=== PATIENT | female | born 1995 | race Two or more races ===

== ENCOUNTER 2016-06-03 00:41 | Emergency (ER) | payer OTHER ==
[2016-06-03 00:52] VITALS: RESP 20; TEMP 97.4; O2SAT 100
[2016-06-03] MEDS ORDERED: ONDANSETRON 4 MG ODT BU ONE ×2 (01:00→01:19)
[2016-06-03] MEDS ORDERED: ONDANSETRON 4 MG ODT ONE ×2 (01:01→01:20)
[2016-06-03 01:20] LABS: APPEARANCE,URINE Cloudy; BILIRUBIN,URINE NEGATIVE (NEGATIVE); COLOR,URINE Yellow; GLUCOSE, URINE (UA) NEGATIVE (NEGATIVE); KETONES,URINE NEGATIVE (NEGATIVE); LEUKOCYTE ESTERASE ,URINE TRACE (NEGATIVE); NITRATE,URINE NEGATIVE (NEGATIVE); OCCULT BLOOD,URINE TRACE LYSED (NEG-TRACE); PH,URINE >=9.0
[2016-06-03] MEDS ORDERED: LOPERAMIDE HYDROCHLORIDE 2 MG CAP PO ONE (01:22)
[2016-06-03] MEDS ORDERED: LOPERAMIDE HYDROCHLORIDE 2 MG CAP ONE (01:23)
[2016-06-03] MEDS ORDERED: SULFAMETHOXAZOLE/TRIMETHOPRI 800/160 MG PO ONE (01:32)
[2016-06-03] MEDS ORDERED: SULFAMETHOXAZOLE/TRIMETHOPRI 800/160 MG ONE (01:37)
[2016-06-03 01:49] VITALS: BP 110/69; PULSE 100
== END 2016-06-03 01:43 | disposition home or self-care (01) | DRG 392 ==
LOC: ED 00:41
DX: K52.9 Noninfective gastroenteritis and colitis, unspecified (principal)
CPT/HCPCS: 81001; 87088; 99283

== ENCOUNTER 2016-07-11 13:52 | Emergency (ER) | payer OTHER ==
[2016-07-11 18:10] VITALS: TEMP 98.4
[2016-07-11 18:16] VITALS: BP 108/68; PULSE 81; RESP 20; O2SAT 98
== END 2016-07-11 14:35 | disposition home or self-care (01) | DRG 206 ==
LOC: ED 13:52
DX: M94.0 Chondrocostal junction syndrome [Tietze] (principal)
CPT/HCPCS: 99282

== ENCOUNTER 2016-09-20 13:15 | Emergency (ER) | payer OTHER ==
[2016-09-20 13:15] VITALS: O2SAT 98
[2016-09-20 13:29] VITALS: BP 121/62; PULSE 106; RESP 18; TEMP 97.4
== END 2016-09-20 13:53 | disposition left against medical advice (07) | DRG 761 ==
LOC: ED 13:15
DX: N93.9 Abnormal uterine and vaginal bleeding, unspecified (principal); J02.9 Acute pharyngitis, unspecified
CPT/HCPCS: 99282

== ENCOUNTER 2016-09-28 13:48 | Emergency (ER) | payer OTHER ==
[2016-09-28] MEDS ORDERED: KETOROLAC TROMETHAMINE 30 MG/ML SOL IM ONE (14:21)
[2016-09-28] MEDS ORDERED: KETOROLAC TROMETHAMINE 30 MG/ML SOL ONE (14:32)
[2016-09-28 14:42] VITALS: RESP 16; TEMP 97.3
[2016-09-28 15:08] VITALS: BP 124/57; PULSE 70; O2SAT 99
== END 2016-09-28 15:15 | disposition home or self-care (01) | DRG 605 ==
LOC: ED 13:48
DX: S90.31XA Contusion of right foot, initial encounter (principal)
CPT/HCPCS: 73630; 99283; J1885

== ENCOUNTER 2016-11-21 02:34 | Emergency (ER) | payer OTHER ==
[2016-11-21 02:39] VITALS: RESP 18; TEMP 97.2
[2016-11-21 03:04] LABS: APPEARANCE,URINE Slightly Cloudy; BILIRUBIN,URINE NEGATIVE (NEGATIVE); COLOR,URINE Yellow; GLUCOSE, URINE (UA) NEGATIVE (NEGATIVE); KETONES,URINE NEGATIVE (NEGATIVE); LEUKOCYTE ESTERASE ,URINE NEGATIVE (NEGATIVE); NITRATE,URINE NEGATIVE (NEGATIVE); OCCULT BLOOD,URINE NEGATIVE (NEG-TRACE); PH,URINE 7.5
[2016-11-21 03:15] LABS: RBC,URINE 0-1 (0-3AV/HPF); WBC,URINE 0-2 (0-5AV/HPF)
[2016-11-21 03:37] VITALS: BP 136/82; PULSE 87; O2SAT 99
== END 2016-11-21 03:33 | disposition home or self-care (01) | DRG 392 ==
LOC: ED 02:34
DX: K59.00 Constipation, unspecified (principal); Z33.1 Pregnant state, incidental
CPT/HCPCS: 81001; 99282

== ENCOUNTER 2017-03-24 22:32 | Emergency (ER) | payer OTHER ==
[2017-03-24 22:40] VITALS: TEMP 97.3
[2017-03-24 23:25] LABS: APPEARANCE,URINE Clear; BILIRUBIN,URINE 1+ (NEGATIVE); COLOR,URINE Dark yellow; GLUCOSE, URINE (UA) NEGATIVE (NEGATIVE); KETONES,URINE 4+ (NEGATIVE); LEUKOCYTE ESTERASE ,URINE NEGATIVE (NEGATIVE); NITRATE,URINE NEGATIVE (NEGATIVE); OCCULT BLOOD,URINE NEGATIVE (NEG-TRACE); PH,URINE 5.5
[2017-03-24 23:40] LABS: ICTOTEST,URINE NEGATIVE (NEGATIVE); RBC,URINE 0-2 (0-3AV/HPF)
[2017-03-24 23:52] VITALS: RESP 18
[2017-03-24 23:53] VITALS: BP 121/88; PULSE 96; O2SAT 100
== END 2017-03-25 00:18 | disposition home or self-care (01) | DRG 781 ==
LOC: ED 22:32
DX: O26.892 Other specified pregnancy related conditions, second trimester (principal); R10.9 Unspecified abdominal pain; Z3A.23 23 weeks gestation of pregnancy
CPT/HCPCS: 59025; 81001; 99284

== ENCOUNTER 2017-04-30 14:54 | Emergency (ER) | payer OTHER ==
[2017-04-30 14:54] VITALS: O2SAT 100
[2017-04-30] MEDS ORDERED: SODIUM CHLORIDE 0.9% 1000ML 1,000 ML IV SCH ×2 (15:45→17:45)
[2017-04-30 15:50] VITALS: TEMP 97.8
[2017-04-30 16:02] LABS: APPEARANCE,URINE Clear; BILIRUBIN,URINE 1+ (NEGATIVE); COLOR,URINE Dark yellow; GLUCOSE, URINE (UA) NEGATIVE (NEGATIVE); KETONES,URINE 4+ (NEGATIVE); LEUKOCYTE ESTERASE ,URINE NEGATIVE (NEGATIVE); NITRATE,URINE NEGATIVE (NEGATIVE); OCCULT BLOOD,URINE NEGATIVE (NEG-TRACE); PH,URINE 5.5
[2017-04-30 16:14] LABS: ICTOTEST,URINE POSITIVE (NEGATIVE); RBC,URINE NEG (0-3AV/HPF)
[2017-04-30 16:17] LABS: ALBUMIN 2.7 gm/dl (3.4-5.0); CALCIUM 8.8 mg/dl (8.5-10.1); POTASSIUM 3.6 mMol/L (3.5-5.1)
[2017-04-30 16:28] LABS: BASOPHILS % (AUTO) 1 % (0-3); EOSINOPHILS % (AUTO) 0 % (0-9); HEMATOCRIT 39 % (35-47); MEAN CORPUSCULAR HGB CONC 31.3 gm/dl (32.0-36.0); MEAN CORPUSCULAR VOLUME 63 fL (81-99); MONOCYTES % (AUTO) 6.7 % (0-12); NEUTROPHILS % (AUTO) 74.7 % (37-80)
[2017-04-30] MEDS ORDERED: BETAMETHASONE 6 MG/ML SUS IM PRN (16:28)
[2017-04-30] MEDS ORDERED: BETAMETHASONE 6 MG/ML SUS ONE (16:31)
[2017-04-30 16:43] LABS: ANISOCYTOSIS SLIGHT AMT; OVALOCYTES PRESENT
[2017-04-30] MEDS ORDERED: MAGNESIUM SULFATE 20GM(PREMIX) 20 GM/500 ML SOL IV ONE (17:03)
[2017-04-30] MEDS ORDERED: NIFEDIPINE 10 MG SGL PO ONE (17:03)
[2017-04-30] MEDS ORDERED: CALCIUM GLUCONATE 10% 100 MG/ML SOL IV PRN (17:09)
[2017-04-30] MEDS ORDERED: MAGNESIUM SULFATE 20GM(PREMIX) 20 GM/500 ML SOL IV SCH (17:15)
[2017-04-30] MEDS ORDERED: CALCIUM GLUCONATE 10% 100 MG/ML SOL IV ONE (17:20)
[2017-04-30 19:04] VITALS: BP 110/66; PULSE 112; RESP 16
== END 2017-04-30 18:32 | disposition short-term general hospital (02) | DRG 778 ==
LOC: ED 14:54
DX: O60.03 Preterm labor without delivery, third trimester (principal); O30.043 Twin pregnancy, dichorionic/diamniotic, third trimester; Z3A.28 28 weeks gestation of pregnancy
CPT/HCPCS: 36415; 59025; 80053; 81001; 85025; 85610; 93005; 96365; 96366; 96372; 99285; J0610; J0702; A9270-GY

== ENCOUNTER 2017-05-21 16:31 | Emergency (ER) | payer OTHER ==
[2017-05-21 18:16] VITALS: TEMP 98.3
[2017-05-21 18:36] LABS: APPEARANCE,URINE Clear; BILIRUBIN,URINE NEGATIVE (NEGATIVE); COLOR,URINE Yellow; GLUCOSE, URINE (UA) NEGATIVE (NEGATIVE); KETONES,URINE NEGATIVE (NEGATIVE); LEUKOCYTE ESTERASE ,URINE NEGATIVE (NEGATIVE); NITRATE,URINE NEGATIVE (NEGATIVE); OCCULT BLOOD,URINE NEGATIVE (NEG-TRACE); PH,URINE 5.5
[2017-05-21 18:56] LABS: RBC,URINE NEG (0-3AV/HPF)
[2017-05-21] MEDS ORDERED: LACTATED RINGERS with DEXTROSE 1,000 ML IV ONE ×3 (19:05→19:07)
[2017-05-21 19:37] VITALS: PULSE 93; RESP 18; O2SAT 99
[2017-05-21 22:10] VITALS: BP 132/81
== END 2017-05-21 21:37 | disposition home or self-care (01) | DRG 392 ==
LOC: ED 16:31
DX: R19.7 Diarrhea, unspecified (principal); O47.03 False labor before 37 completed weeks of gestation, third trimester; R11.10 Vomiting, unspecified; Z3A.31 31 weeks gestation of pregnancy
CPT/HCPCS: 81001; 82731; 96365; 96366; 99283; 99285

== ENCOUNTER 2017-06-16 14:21 | Observation (INO) | payer OTHER ==
[2017-05-21 19:37] VITALS: O2SAT 99
[2017-06-16] MEDS ORDERED: LACTATED RINGERS with DEXTROSE 1,000 ML IV ONE ×2 (15:13→17:40)
[2017-06-16] MEDS ORDERED: SODIUM CHLORIDE 0.9% FLUSH 10 ML SOL IV PRN (15:20)
[2017-06-16 15:27] VITALS: RESP 16
[2017-06-16 16:08] LABS: APPEARANCE,URINE Clear; BILIRUBIN,URINE NEGATIVE (NEGATIVE); COLOR,URINE Yellow; GLUCOSE, URINE (UA) NEGATIVE (NEGATIVE); KETONES,URINE NEGATIVE (NEGATIVE); LEUKOCYTE ESTERASE ,URINE NEGATIVE (NEGATIVE); NITRATE,URINE NEGATIVE (NEGATIVE); OCCULT BLOOD,URINE NEGATIVE (NEG-TRACE)
[2017-06-16 16:32] LABS: BACTERIA 2+ (< 1+); CRYSTALS NEGATIVE (0-3 AVE/HPF); EPITHELIAL CELLS MANY CLUMPS (SQUAMOUS); RBC,URINE NEG (0-3AV/HPF); WBC,URINE 0-2 (0-5AV/HPF)
[2017-06-16 18:42] VITALS: BP 135/70; PULSE 89; TEMP 98.2
== END 2017-06-16 20:45 | disposition home or self-care (01) | DRG 780 ==
LOC: OB 14:22
PROVIDERS: ADMIT Family Medicine; ATTEND Family Medicine
DX: O47.03 False labor before 37 completed weeks of gestation, third trimester (principal); Z3A.35 35 weeks gestation of pregnancy
CPT/HCPCS: 59025; 81001; 87088

== ENCOUNTER 2017-06-28 23:30 | Inpatient (IN) | payer OTHER ==
[2017-06-28] MEDS ORDERED: CITRIC ACID/SODIUM CITRATE SOL PO ONE (23:45)
[2017-06-29 00:10] LABS: BASOPHILS % (AUTO) 1 % (0-3); EOSINOPHILS % (AUTO) 1 % (0-9); HEMATOCRIT 39 % (35-47); HEMOGLOBIN 11.8 gm/dl (12.0-15.5); LYMPHOCYTES % (AUTO) 34.2 % (10-50); MEAN CORPUSCULAR HEMOGLOBIN 19.9 pg (27.0-32.0); MEAN CORPUSCULAR HGB CONC 30.5 gm/dl (32.0-36.0); MONOCYTES % (AUTO) 8.3 % (0-12); NEUTROPHILS % (AUTO) 55.7 % (37-80)
[2017-06-29 00:22] LABS: MEAN CORPUSCULAR VOLUME 65 fL (81-99)
[2017-06-29] MEDS: LACTATED RINGERS 1,000 ML IV SCH ×4 (00:32→20:05)
[2017-06-29 00:33] LABS: ANISOCYTOSIS SLIGHT AMT; OVALOCYTES PRESENT; POIKILOCYTOSIS SLIGHT AMT; TEAR DROP CELLS PRESENT
[2017-06-29 00:43] LABS: APPEARANCE,URINE Clear; BILIRUBIN,URINE NEGATIVE (NEGATIVE); COLOR,URINE Yellow; GLUCOSE, URINE (UA) NEGATIVE (NEGATIVE); KETONES,URINE TRACE (NEGATIVE); LEUKOCYTE ESTERASE ,URINE NEGATIVE (NEGATIVE); NITRATE,URINE NEGATIVE (NEGATIVE); OCCULT BLOOD,URINE 1+ (NEG-TRACE)
[2017-06-29 00:59] LABS: WBC,URINE NEG (0-5AV/HPF)
[2017-06-29 01:00] LABS: BACTERIA NEGATIVE (< 1+); CRYSTALS NEGATIVE (0-3 AVE/HPF)
[2017-06-29 01:05] LABS: ABO A; ANTIBODY SCREEN Negative; RH TYPE Positive
[2017-06-29] MEDS ORDERED: FENTANYL 100MCG/2ML SOL ONE ×2 (01:08→02:47)
[2017-06-29] MEDS ORDERED: MORPHINE SULFATE 0.5 MG/ML SOL ONE (01:08)
[2017-06-29] MEDS ORDERED: OXYTOCIN 10000 MU/ML SOL ONE ×2 (01:52→03:04)
[2017-06-29] MEDS ORDERED: CEFAZOLIN SODIUM 1 GM PDS ONE ×2 (01:52→08:22)
[2017-06-29] MEDS ORDERED: EPHEDRINE SULFATE 50 MG/ML SOL ONE (01:52)
[2017-06-29] MEDS ORDERED: [UNRECOGNIZED DRUG - OTHER] IV ONE (01:55)
[2017-06-29] MEDS ORDERED: ONDANSETRON HCL 4 MG/2 ML SOL ONE (02:21)
[2017-06-29] MEDS ORDERED: METHYLERGONOVINE MALEATE 0.2 MG/ML SOL ONE (02:25)
[2017-06-29] MEDS ORDERED: [UNRECOGNIZED DRUG - OTHER] IV ONE (03:12)
[2017-06-29] MEDS ORDERED: KETOROLAC TROMETHAMINE 30 MG/ML SOL ONE (03:48)
[2017-06-29] MEDS ORDERED: DIPHENHYDRAMINE 25 MG CAP ONE (04:25)
[2017-06-29] MEDS ORDERED: BISACODYL 10 MG SUP PR PRN (05:16)
[2017-06-29] MEDS ORDERED: WITCH HAZEL 1 EA PAD TOP PRN (05:16)
[2017-06-29] MEDS ORDERED: FLEET ENEMA PR PRN (05:16)
[2017-06-29] MEDS ORDERED: METHYLERGONOVINE MALEATE 0.2 MG TAB PO PRN (05:16)
[2017-06-29] MEDS ORDERED: BENZOCAINE/MENTHOL 1 SPR TOP PRN (05:16)
[2017-06-29] MEDS ORDERED: TEMAZEPAM 15MG 15 MG CAP PO PRN (05:16)
[2017-06-29] MEDS: CEFAZOLIN (PREMIX) 1 GM 1 GM/50 ML SOL IV SCH ×2 (05:43→08:36)
[2017-06-29] MEDS ORDERED: APAP/HYDROCODONE 325/5 TAB ONE (05:51)
[2017-06-29] MEDS: APAP/HYDROCODONE 325/5 TAB PO PRN ×3 (06:03→16:53)
[2017-06-29] MEDS ORDERED: CEFAZOLIN SODIUM 1 GM PDS IV ONE (08:27)
[2017-06-29] MEDS: DOCUSATE SODIUM 100 MG SGL PO SCH ×2 (08:28→21:43)
[2017-06-29] MEDS: KETOROLAC TROMETHAMINE 30 MG/ML SOL IV PRN ×2 (09:46→20:04)
[2017-06-29] MEDS: SODIUM CHLORIDE 0.9% FLUSH 10 ML SOL IV PRN ×2 (09:52→20:05)
[2017-06-29] MEDS ORDERED: DIPHENHYDRAMINE 25 MG CAP PO PRN (12:18)
[2017-06-29] MEDS: IBUPROFEN 600 MG TAB PO PRN (15:48)
[2017-06-29] MEDS: APAP/OXYCODONE 325/5 TAB PO PRN (21:50)
[2017-06-30] MEDS: KETOROLAC TROMETHAMINE 30 MG/ML SOL IV PRN ×2 (02:30→08:04)
[2017-06-30] MEDS: SODIUM CHLORIDE 0.9% FLUSH 10 ML SOL IV PRN ×2 (08:04→20:50)
[2017-06-30] MEDS: FERROUS GLUCONATE 324 MG TABLET PO SCH ×2 (08:29→20:50)
[2017-06-30] MEDS: DOCUSATE SODIUM 100 MG SGL PO SCH ×2 (08:29→20:50)
[2017-06-30] MEDS: ONDANSETRON HCL 4 MG/2 ML SOL IV PRN ×2 (09:16→23:10)
[2017-06-30] MEDS ORDERED: APAP/OXYCODONE 325/5 TAB ONE (11:58)
[2017-06-30] MEDS: APAP/OXYCODONE 325/5 TAB PO PRN (12:18)
[2017-06-30] MEDS: IBUPROFEN 600 MG TAB PO PRN (15:50)
[2017-06-30] MEDS: APAP/HYDROCODONE 325/5 TAB PO PRN ×2 (17:46→21:42)
[2017-07-01] MEDS: APAP/HYDROCODONE 325/5 TAB PO PRN ×3 (06:19→20:42)
[2017-07-01] MEDS: DOCUSATE SODIUM 100 MG SGL PO SCH ×2 (08:54→21:23)
[2017-07-01] MEDS: FERROUS GLUCONATE 324 MG TABLET PO SCH ×2 (08:54→21:23)
[2017-07-01] MEDS: IBUPROFEN 600 MG TAB PO PRN ×2 (08:54→18:47)
[2017-07-01] MEDS ORDERED: SODIUM CHLORIDE 0.9% FLUSH 10 ML SOL IV PRN (14:42)
[2017-07-01 16:27] LABS: UNIT TYPE A POSITIVE
[2017-07-01 16:58] LABS: UNIT TYPE A POSITIVE
[2017-07-01] MEDS: SODIUM CHLORIDE 0.9% FLUSH 10 ML SOL IV PRN ×3 (17:05→23:48)
[2017-07-01] MEDS: SODIUM CHLORIDE 0.9% 500 ML 500 ML IV SCH (17:08)
[2017-07-01] MEDS ORDERED: FUROSEMIDE 20mg SOL ONE ×2 (19:47→22:41)
[2017-07-01] MEDS: FUROSEMIDE 20mg SOL IV SCH ×2 (19:50→22:43)
[2017-07-01] MEDS: ONDANSETRON HCL 4 MG/2 ML SOL IV PRN (23:48)
[2017-07-02] MEDS: IBUPROFEN 600 MG TAB PO PRN ×2 (00:35→20:29)
[2017-07-02] MEDS: SODIUM CHLORIDE 0.9% FLUSH 10 ML SOL IV PRN (08:52)
[2017-07-02] MEDS: ONDANSETRON HCL 4 MG/2 ML SOL IV PRN (08:52)
[2017-07-02] MEDS: FERROUS GLUCONATE 324 MG TABLET PO SCH ×2 (10:19→20:29)
[2017-07-02] MEDS: DOCUSATE SODIUM 100 MG SGL PO SCH ×2 (10:20→20:29)
[2017-07-02] MEDS: APAP/HYDROCODONE 325/5 TAB PO PRN ×3 (10:23→22:17)
[2017-07-02] MEDS: SODIUM CHLORIDE 0.9% 500 ML 500 ML IV SCH (10:58)
[2017-07-02 14:20] VITALS: O2SAT 100
[2017-07-02] MEDS ORDERED: SODIUM CHLORIDE 0.9% FLUSH 10 ML SOL IV SCH (17:00)
[2017-07-02 21:00] VITALS: RESP 16
[2017-07-03 08:03] VITALS: BP 122/76; PULSE 76; TEMP 98.2
[2017-07-03] MEDS: IBUPROFEN 600 MG TAB PO PRN (08:27)
[2017-07-03] MEDS: DOCUSATE SODIUM 100 MG SGL PO SCH (08:28)
[2017-07-03] MEDS: FERROUS GLUCONATE 324 MG TABLET PO SCH (08:28)
[2017-07-03] MEDS: APAP/HYDROCODONE 325/5 TAB PO PRN (13:10)
== END 2017-07-03 13:20 | disposition home or self-care (01) | DRG 765 ==
LOC: OB 23:30 → UNDOADMIN 23:30
PROVIDERS: ADMIT Family Medicine; ATTEND Family Medicine
PROC: 10907ZC Drainage of Amniotic Fluid, Therapeutic from Products of Conception, Via Natural or Artificial Opening (ICD-10-PCS; 2017-06-29)
PROC: 10D00Z1 Extraction of Products of Conception, Low, Open Approach (ICD-10-PCS; principal; 2017-06-29 00:30)
DX: O64.1XX1 Obstructed labor due to breech presentation, fetus 1 (principal); O30.003 Twin pregnancy, unspecified number of placenta and unspecified number of amniotic sacs, third trimester; Z37.2 Twins, both liveborn; O64.1XX2 Obstructed labor due to breech presentation, fetus 2; Z3A.37 37 weeks gestation of pregnancy
CPT/HCPCS: 36415; 59025; 76000; 81001; 84112; 85018; 85025; 86850; 86900; 86901; 86920; 99070; J0690; J1885; J1940; J2210; J2274; J2405; J2590; J3010; P9016; A9270-GY; J3490

== ENCOUNTER 2018-06-27 17:36 | Emergency (ER) | payer OTHER ==
[2018-06-27 18:53] VITALS: BP 114/79; PULSE 86; RESP 14; TEMP 97.9; O2SAT 14
== END 2018-06-27 19:05 | disposition home or self-care (01) | DRG 153 ==
LOC: ED 17:36
DX: J02.8 Acute pharyngitis due to other specified organisms (principal)
CPT/HCPCS: 87430; 99282

== ENCOUNTER 2018-07-06 19:25 | Emergency (ER) | payer OTHER ==
[2018-07-06] MEDS ORDERED: NAPROXEN 500 MG TAB PO ONE (19:57)
[2018-07-06] MEDS ORDERED: NAPROXEN 500 MG TAB ONE (20:00)
[2018-07-06 20:57] VITALS: TEMP 97.8
[2018-07-06 20:58] VITALS: O2SAT 100
[2018-07-06 20:59] VITALS: BP 118/76; PULSE 76; RESP 22
== END 2018-07-06 20:47 | disposition home or self-care (01) | DRG 313 ==
LOC: ED 19:25
DX: R07.9 Chest pain, unspecified (principal); R06.02 Shortness of breath
CPT/HCPCS: 93005; 99283; A9270-GY